=== PATIENT | female | born 1975 | race Hispanic/Latino ===

== ENCOUNTER 2017-04-28 11:02 | Emergency (ER) | payer MEDICARE, MEDICAID ==
[2017-04-28 11:36] VITALS: RESP 18; TEMP 98.4
[2017-04-28] MEDS ORDERED: Albuterol-Ipratrop 3 mg / 0.5 (3 ml) UD IH STA (11:45)
--- NOTE | 2017-04-28 12:15 | ED PDOC ---
Arrival/HPI - General Time Seen by Provider: 04/28/17 11:24 Historian: Patient - History of Present Illness Narrative History of Present Illness (Text): 04/28/17 12:01 41 yo female w/PMHx of COPD, chronic lower back pain ( Fentanyl patch), come in for evaluation of cold sx for past 2 weeks associated with nasal congestion, productive cough with clear sputum. Pt reports, for past few days, cough worsen , developed some chest tightness "not improves with inhaler". Pt admits, was seen by PMD last week who recommend and gave Rx for CXR, pt comes to ED. Otherwise, pt denies high fever, chills, headache, dizziness, vertigo, neck pain , drooling, dysphagia, dyspnea, CP, SOB, palpitation, abd. pain, V/D, back pain , UTI sx. Ambulate to ED for evaluation, not in any apparent distress. Past Medical History - Provider Review Nursing Documentation Reviewed: Yes - Travel History Have you recently traveled outside [place] w/in the past 3 mons?: No - Infectious Disease Hx of Infectious Diseases: None - Tetanus Immunization Tetanus Immunization: Unknown - Cardiac Hx Cardiac Disorders: Yes Hx Hypertension: Yes Hx Pacemaker: No - Pulmonary Hx Respiratory Disorders: Yes Hx Asthma: Yes - Neurological Hx Neurological Disorder: No Hx Paralysis: No - HEENT Hx HEENT Disorder: No Hx Difficulty Chewing: No - Renal Hx Renal Disorder: No - Endocrine/Metabolic Hx Endocrine Disorders: No - Hematological/Oncological Hx Blood Disorders: No Hx Blood Transfusions: No Hx Blood Transfusion Reaction: No - Integumentary Hx Dermatological Disorder: No - Musculoskeletal/Rheumatological Hx Musculoskeletal Disorders: Yes Hx Back Pain: Yes Other/Comment: epidural - Gastrointestinal Hx Gastrointestinal Disorders: No - Genitourinary/Gynecological Hx Genitourinary Disorders: No - Psychiatric Hx Anxiety: Yes Hx Emotional Abuse: No Hx Physical Abuse: No Hx Substance Use: No - Surgical History Hx Section: Yes Hx Musculoskeletal Surgery: Yes Hx Tonsillectomy: Yes Hx Tubal Ligation: Yes - Anesthesia Hx Anesthesia Reactions: No Hx Malignant Hyperthermia: No - Suicidal Assessment Feels Threatened In Home Enviroment: No Family/Social History - Physician Review Nursing Documentation Reviewed: Yes Family/Social History: No Known Family HX Smoking Status: Heavy Smoker > 10 Cigarettes Daily Hx Alcohol Use: Yes (SOCIAL) Hx Substance Use: No Hx Substance Use Treatment: No Allergies/Home Meds Allergies/Adverse Reactions: Allergies aspirin Allergy (Verified 04/28/17 14:24) VOMITING MUSHROOMS Allergy (Intermediate, Uncoded 04/28/17 14:24) RASH Home Medications: Home Meds Medication Instructions Recorded Confirmed Albuterol Sulfate [Albuterol Hfa] 1 puff IH PRN PRN 09/30/11 04/10/15 Oxycodone Hydrochloride [Oxycodone] 15 mg PO TID PRN 09/30/11 04/10/15 Fentanyl 100 mcg TD Q48H 04/08/12 04/10/15 Omeprazole [Omeprazole] 04/10/15 04/10/15 Sucralfate [Sucralfate] 04/10/15 04/10/15 Triamterene/Hydrochlorothiazid 04/10/15 04/10/15 [Triamterene-Hydrochlorothiazide 25 mg-37.5 mg] Review of Systems - Physician Review All systems were reviewed & negative as marked: Yes - Review of Systems Constitutional: Fevers (low grade) Eyes: Normal ENT: Rhinorrhea Respiratory: Cough, Sputum, Wheezing Cardiovascular: Normal. absent: Chest Pain Gastrointestinal: Normal. absent: Abdominal Pain, Diarrhea, Vomiting Genitourinary Female: Normal Musculoskeletal: Normal Skin: Normal. absent: Rash Neurological: Normal. absent: Headache, Dizziness Endocrine: Normal Hemo/Lymphatic: Normal Psychiatric: Normal Physical Exam Vital Signs Reviewed: Yes Vital Signs Temp Pulse Resp BP Pulse Ox 04/28/17 14:13 74 18 128/65 98 04/28/17 12:29 79 18 132/69 98 04/28/17 11:15 98.4 F 85 18 136/73 98 Temperature: Afebrile Blood Pressure: Normal Pulse: Regular Respiratory Rate: Normal Appearance: Positive for: Well-Appearing, Non-Toxic, Comfortable Pain Distress: Moderate Mental Status: Positive for: Alert and Oriented X 3 - Systems Exam Conjunctiva: Present: Normal Mouth: Present: Moist Mucous Membranes. No: Drooling Pharnyx: Present: ERYTHEMA (mild B/L). No: EXUDATE, TONSILS ENLARGED Nose (Internal): Present: Rhinorrhea (scant, clear B/L) Neck: Present: Normal Range of Motion Respiratory/Chest: Present: Good Air Exchange, Wheezes (scant bibasilar). No: Respiratory Distress, Accessory Muscle Use, Decreased Breath Sounds, Rales, Retracting, Rhonchi, Tachypneic Cardiovascular: Present: Regular Rate and Rhythm, Normal S1, S2. No: Murmurs Abdomen: Present: Normal Bowel Sounds. No: Tenderness, Distention, Peritoneal Signs, Rebound, Guarding Upper Extremity: Present: Normal ROM Lower Extremity: Present: NORMAL PULSES. No: Edema, CALF TENDERNESS, Swelling Neurological: Present: GCS=15, Speech Normal Skin: Present: Warm, Dry, Normal Color. No: Rashes Psychiatric: Present: Alert, Oriented x 3, Normal Insight, Normal Concentration Medical Decision Making ED Course and Treatment: 04/28/17 13:17 On re-eval, pt is awake, alert, not in resp. distress. Pt reports mild improvement in symptoms, and request to be discharge now. Afebril, hemodynamicaly stable. PusleOx 98% RA ENT: no acute findings. Neck: SUpple, (-) JVD, (-) carotid bruits B/L Lungs: CTA B/L, BS equal B/L. CVS: (+)S1S2, reg. ABd: benign. Neurologically intact. Blood work review, CBC, BMP- normal srudy. Troponin I - negative, BNP- elevated. results review and discussed with patient, further study offered, pt refused at this time. Pt advised on course of ds. ref. to f/u with PMD in 2-3 days for re-eval. return to ED if any worsening or new changes. - Lab Interpretations Lab Results: 04/28/17 13:15 04/28/17 13:15 Lab Results 04/28/17 13:44: Urine Color Yellow, Urine Appearance Clear, Urine pH 6.0, Ur Specific [place] 1.020, Urine Protein 100 H, Urine Glucose (UA) Negative, Urine Ketones Negative, Urine Blood Small H, Urine Nitrate Negative, Urine Bilirubin Negative, Urine Urobilinogen 1.0 H, Ur Leukocyte Esterase Trace H, Urine RBC 1 - 3, Urine WBC 2 - 5, Ur Epithelial Cells 0 - 2, Urine Bacteria Few 04/28/17 13:15: Sodium 139, Potassium 4.6, Chloride 108 H, Carbon Dioxide 25, Anion Gap 11, BUN 13, Creatinine 0.9, Est GFR ( Amer) > 60, Est GFR (Non- Af Amer) > 60, Random Glucose 99, Calcium 8.8, Lactate Dehydrogenase 562, Total Creatine Kinase 56, Troponin I < 0.01, NT-Pro-B Natriuret Pep 08157 H 04/28/17 13:15: WBC 4.5 D, RBC 3.72, Hgb 12.2, Hct 37.4, MCV 100.5, MCH 32.8, MCHC 32.6, RDW 15.3 H, Plt Count 131, MPV 11.3 H, Gran % 62.8, Lymph % (Auto) 25.6, [place] % (Auto) 9.7 H, Eos % (Auto) 1.5, Baso % (Auto) 0.4, Gran # 2.85, Lymph # 1.2, [place] # 0.4, Eos # 0.1, Baso # 0.02 Interpretation: Abnormal lab values - RAD Interpretation Radiology Orders: 04/28/17 11:44 CHEST TWO VIEWS (PA/LAT) [RAD] Stat normal study, as per radiology reading - Medication Orders Current Medication Orders: Discontinued Medications Albuterol/Ipratropium (Duoneb 3 Mg/0.5 Mg (3 Ml) Ud) 3 ml IH STAT STA Stop: 04/28/17 11:46 Last Admin: 04/28/17 12:11 Dose: 3 ml Azithromycin (Zithromax) 500 mg PO STAT STA PRN Reason: Protocol Stop: 04/28/17 13:36 Methylprednisolone (Solu-Medrol) 125 mg IVP STAT STA Stop: 04/28/17 12:11 Last Admin: 04/28/17 13:36 Dose: 125 mg IVP Administration Document 04/28/17 13:36 [facility] (Rec: 04/28/17 13:36 [id number]) Charges for Administration # of IVP Administrations 1 Disposition/Present on Arrival - Present on Arrival Any Indicators Present on Arrival: No History of DVT/PE: No History of Uncontrolled Diabetes: No Urinary Catheter: No History Surgical Site Infection Following: Orthopedic Procedures - Disposition Have Diagnosis and Disposition been Completed?: Yes Diagnosis: COPD (chronic obstructive pulmonary disease), CHF (congestive heart failure) Disposition: AGAINST MEDICAL ADVICE Disposition Time: 13:35 Patient Plan: Discharge Condition: STABLE Discharge Instructions (ExitCare): COPD (Chronic Obstructive Pulmonary Disease ) (ED), Heart Failure (ED) Additional Instructions: TAKE MEDICATION PRESCRIBED FOLLOW UP WITH PMD AND CARDIOLOGY IN 1-2 DAYS FOR RE-EVALUATION WITHOUT FAIL. RETURN TO ED AT ANY TIME FOR FURTHER EVALUATION. Prescriptions: Albuterol 0.083% [Albuterol 0.083% Inhal [place] (2.5 mg/3 ml) UD] 2.5 mg IH Q6 #50 neb Albuterol HFA [Ventolin HFA 90 mcg/actuation (8 g)] 1 puff IH Q6 #1 inhaler Azithromycin [Zithromax] 250 mg PO DAILY #4 tab Prednisone [Deltasone] 60 mg PO DAILY 9 Days #3 tablet Referrals: Kendra Wiley MD [Primary Care Provider] - Follow up with primary
--- NOTE | 2017-04-28 13:11 | RAD ---
HISTORY: Cough COMPARISON: No prior. TECHNIQUE: Chest PA and lateral FINDINGS: LUNGS: No active pulmonary disease. PLEURA: No significant pleural effusion identified. No pneumothorax apparent. CARDIOVASCULAR: Severe cardiomegaly OSSEOUS STRUCTURES: No significant abnormalities. VISUALIZED UPPER ABDOMEN: Normal. OTHER FINDINGS: None. IMPRESSION: No active disease.
[2017-04-28 13:20] LABS: BASO # 0.02 K/mm3 (0.0-2.0); BASO % 0.4 % (0.0-3.0); EOS # 0.1 (0.0-0.7); EOS % 1.5 % (1.5-5.0); GRAN # 2.85 (1.4-6.5); GRAN % 62.8 % (50.0-68.0); HEMATOCRIT 37.4 % (36.0-48.0); LYMPH # 1.2 (1.2-3.4); LYMPH % 25.6 % (22.0-35.0); MEAN CELL VOLUME 100.5 fl (80.0-105.0); MEAN CORPUSCULAR HEMOGLOBIN 32.8 pg (25.0-35.0); MEAN CORPUSCULAR HGB CONC 32.6 g/dl (31.0-37.0); MEAN PLATELET VOLUME 11.3 fl (7.0-11.0); MONO # 0.4 (0.1-0.6); MONO % 9.7 % (1.0-6.0); RED CELL DISTRIBUTION WIDTH 15.3 % (11.5-14.5); WHITE BLOOD COUNT 4.5 10^3/ul (4.5-11.0)
[2017-04-28 13:43] LABS: BLOOD UREA NITROGEN 13 mg/dL (7-21); CALCIUM 8.8 mg/dL (8.4-10.5); CARBON DIOXIDE 25 mmol/L (21-33); CHLORIDE 108 mmol/L (98-107); GFR AFRICAN-AMERICAN > 60; GLUCOSE,RANDOM 99 mg/dL (70-110); POTASSIUM 4.6 mmol/L (3.6-5.0); SODIUM 139 mmol/L (132-148)
[2017-04-28 13:54] LABS: TROPONIN I < 0.01 ng/mL
[2017-04-28 13:55] LABS: URINE BILIRUBIN NEGATIVE (NEGATIVE); URINE BLOOD SMALL (NEGATIVE); URINE GLUCOSE (UA) NEGATIVE (NEGATIVE); URINE KETONE NEGATIVE (NEGATIVE); URINE LEUKOCYTE ESTERASE TRACE Leu/uL (NEGATIVE); URINE PROTEIN 100 mg/dL (<30 mg/dL)
[2017-04-28 13:58] LABS: URINE APPEARANCE CLEAR (CLEAR); URINE COLOR YELLOW (YELLOW)
[2017-04-28 14:11] LABS: URINE EPITHELIAL CELLS 0 - 2 /hpf (0-5)
[2017-04-28 14:12] LABS: URINE BACTERIA FEW (NEG)
[2017-04-28 14:13] VITALS: BP 128/65; PULSE 74
[2017-04-28 14:22] VITALS: BMI 24.7
[2017-04-28 18:18] VITALS: O2SAT 97
== END 2017-04-28 14:30 | disposition left against medical advice (07) ==
LOC: ED 11:02
DX: J44.9 Chronic obstructive pulmonary disease, unspecified (principal); I11.0 Hypertensive heart disease with heart failure; I50.9 Heart failure, unspecified; F17.210 Nicotine dependence, cigarettes, uncomplicated
CPT/HCPCS: 71020; 80048; 81001; 82550; 83615; 83880; 84484; 85025; 87086; 96374; 99284; J2930